=== PATIENT | male | born 1985 ===

== ENCOUNTER 2017-08-24 16:02 | Emergency (ER) | payer MEDICAID ==
[2017-08-24 16:02] VITALS: BMI 31.9
[2017-08-24 16:14] VITALS: BP 114/82; PULSE 74; RESP 18; TEMP 98.4; O2SAT 99
--- NOTE | 2017-08-24 17:07 | C.PDOC ---
History Of Present Illness Patient is a 31 y/o male who presents to the ED with a complaint of digitally and positionally reproduceable pain to right parasternal border. 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 Time Seen by Provider: 08/24/17 16:53 Chief Complaint (Nursing): Chest Pain History Per: Patient History/Exam Limitations: no limitations Current Symptoms Are (Timing): Still Present Exacerbating Factors: Movement, Other (palpation) Recent travel outside of the [place]: No Past Medical History Reviewed: Historical Data, Nursing Documentation, Vital Signs Vital Signs: Last Vital Signs Temp 98.4 F 08/24/17 16:11 Pulse 74 08/24/17 16:11 Resp 18 08/24/17 16:11 BP 114/82 08/24/17 16:11 Pulse Ox 99 08/24/17 17:07 - Medical History PMH: Anxiety, Asthma (As a child), Depression, Fibromyalgia, Gall Bladder Disease (Stones surgically removed) Denies: Chronic Kidney Disease Surgical History: [place] [facility] CLOSED ENDOSCOPIC BIOPSY OF LARGE INTESTINE (04/05/15) RADICAL EXCIS SKIN LES (02/17/15) Family History: States: Unknown Family Hx - Social History Hx Tobacco Use: Yes Hx Alcohol Use: Yes Hx Substance Use: No - Immunization History Hx Tetanus Toxoid Vaccination: No Hx Influenza Vaccination: No Hx Pneumococcal Vaccination: No Review Of Systems Cardiovascular: Positive for: Chest Pain (right parasternal border) Physical Exam - Physical Exam Appears: Well, Non-toxic, No Acute Distress Skin: Normal Color, Warm, Dry Head: Atraumatic, Normacephalic Oral Mucosa: Moist Chest: Tenderness (digitally reproduceable pain to right lower parasternal border) Cardiovascular: Rhythm Regular, No Murmur Respiratory: Normal Breath Sounds, No Rales, No Rhonchi, No Wheezing Neurological/Psych: Oriented x3, Normal Speech, Normal Cognition ED Course And Treatment ECG: Interpreted By Me ECG Rhythm: Sinus Rhythm ECG Interpretation: Normal Rate From EC O2 Sat by Pulse Oximetry: 99 Pulse Ox Interpretation: Normal Progress Note: EKG ordered. Motrin administered. 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 normal EKG no rash, c/w costochondritis h/o anxiety and non-compliance with anxiety meds discussed. Pt will f/u as opt and is self-medicating with work and exercise and declines meds for now for fear of "going crazy" if he ever comes off his psych meds. Disposition Doctor Will See Patient In The: Office Counseled Patient/Family Regarding: Studies Performed, Diagnosis - Disposition Referrals: Jaron Sharp MD [Non-Staff] - Disposition: HOME/ ROUTINE Disposition Time: 17:07 Condition: GOOD Additional Instructions: continue ice packs to the affected area 1/2 hour per hour, nothing hot. no hot showers to the area. Continue Motrin/Ibuprofen 400-600 mg every 6 hours as needed Limit heavy lifting as able during work YOU ARE CLEARED TO NORMAL DUTY AT WORK WITHOUT RESTRICTIONS. Instructions: Costochondritis (ED) Forms: [employer] ([place]ian) - Clinical Impression Clinical Impression: Chest wall discomfort - Scribe Statement The provider has reviewed the documentation as recorded by the Scribe Addie Bender All medical record entries made by the Scribe were at my direction and personally dictated by me. I have reviewed the chart and agree that the record accurately reflects my personal performance of the history, physical exam, medical decision making, and the department course for this patient. I have also personally directed, reviewed, and agree with the discharge instructions and disposition.
--- NOTE | 2017-08-27 12:48 | CARD ---
APPROVED REPORT EKG Measurement Heart [id number] <Conclusion> Normal sinus rhythm with sinus arrhythmia Normal ECG
== END 2017-08-24 17:16 | disposition home or self-care (01) ==
LOC: C.ER 16:02
DX: R07.89 Other chest pain (principal); Z87.891 Personal history of nicotine dependence